=== PATIENT | male | born 1990 | race Caucasian/White ===

== ENCOUNTER 2020-04-11 17:19 | Inpatient (IN) | payer OTHER ==
[~2020-04-11] VITALS: Ht 188 cm; Wt 113.7 kg
[2020-04-11] MEDS ORDERED: ONDANSETRON HCL 4 MG/2 ML VIAL IVP PRN (18:00)
[2020-04-11] MEDS ORDERED: ACETAMINOPHEN 325 MG TABLET PO PRN ×2 (18:00→19:15)
[2020-04-11] MEDS ORDERED: 0.9% SODIUM CHLORIDE 10 ML SYRINGE IVP PRN (18:00)
[2020-04-11 18:23] LABS: BASOPHILS % (AUTO) 0.5 % (0.0-2.0); EOSINOPHILS % (AUTO) 0.7 % (1.0-6.0); HEMATOCRIT 49.6 % (41-53); HEMOGLOBIN 16.2 g/dL (13.5-17.5); LYMPHOCYTES # (AUTO) 2.7 K/uL (1.0-4.8); LYMPHOCYTES % (AUTO) 22.4 % (22.0-44.0); MEAN CORPUSCULAR HEMOGLOBIN 27.6 pg (26.0-34.0); MEAN CORPUSCULAR HGB CONC 32.7 G/dL (31.0-37.0); MEAN CORPUSCULAR VOLUME 84 fL (80-100); MONOCYTES # (AUTO) 0.7 K/uL (0.1-1.0); MONOCYTES % (AUTO) 5.9 % (2.0-9.0); NEUTROPHILS # (AUTO) 8.5 K/uL (1.8-7.7); NEUTROPHILS % (AUTO) 70.5 % (40.0-70.0); PLATELET COUNT (AUTO) 267 K/uL (150-450); RED BLOOD CELL COUNT(AUTO) 5.88 MIL/uL (4.50-5.90); RED CELL DISTRIBUTION WIDTH 13.4 % (11.5-14.5)
[2020-04-11 18:44] LABS: ANION GAP 7 mmol/L (8-16); CALCIUM, TOTAL 8.7 mg/dL (8.8-10.5); CARBON DIOXIDE 30 mmol/L (22-29); CHLORIDE 100 mmol/L (98-107); CREATININE 0.99 mg/dL (0.60-1.30); GLOMERULAR FILTR. RATE CALC > 60 mL/min (>60); GLUCOSE,RANDOM 80 mg/dL (70-110); POTASSIUM 3.8 mmol/L (3.5-5.1); SODIUM SERUM 137 mmol/L (136-145); UREA NITROGEN, BLOOD 14 mg/dL (7-18)
[2020-04-11 19:06] LABS: ALANINE AMINOTRANSFERASE 40 U/L (12-78); ALKALINE PHOSPHATASE 93 U/L (46-116); ASPARTATE AMINOTRANSFERASE 24 U/L (15-37); BILIRUBIN,TOTAL 0.9 mg/dL (0.1-1.0); C-REACTIVE PROTEIN QUANT 0.25 mg/dL (0.00-0.30); CREATINE KINASE, TOTAL ONLY 222 U/L (39-308); FERRITIN 105 ng/mL (26-388); TOTAL PROTEIN, SERUM 7.8 g/dL (6.4-8.2)
[2020-04-11] MEDS ORDERED: MAGNESIUM HYDROXIDE SUSPENSION 30 ML UDCUP PO PRN (19:15)
[2020-04-11 22:02] VITALS: BP 131/72
[2020-04-12] MEDS: HEPARIN SODIUM,PORCINE 5,000 UNITS/ML VIAL SQ SCH ×3 (01:03→15:07)
[2020-04-12 08:11] LABS: BASOPHILS % (AUTO) 0.2 % (0.0-2.0); EOSINOPHILS % (AUTO) 0.8 % (1.0-6.0); HEMOGLOBIN 16.7 g/dL (13.5-17.5); LYMPHOCYTES # (AUTO) 2.2 K/uL (1.0-4.8); LYMPHOCYTES % (AUTO) 28.3 % (22.0-44.0); MEAN CORPUSCULAR HEMOGLOBIN 28.7 pg (26.0-34.0); MEAN CORPUSCULAR HGB CONC 34.2 G/dL (31.0-37.0); MEAN CORPUSCULAR VOLUME 84 fL (80-100); MONOCYTES # (AUTO) 0.4 K/uL (0.1-1.0); MONOCYTES % (AUTO) 5.7 % (2.0-9.0); NEUTROPHILS # (AUTO) 5.1 K/uL (1.8-7.7); PLATELET COUNT (AUTO) 278 K/uL (150-450); RED BLOOD CELL COUNT(AUTO) 5.84 MIL/uL (4.50-5.90); RED CELL DISTRIBUTION WIDTH 13.7 % (11.5-14.5)
[2020-04-12 09:00] VITALS: BP 114/74
[2020-04-12 09:15] LABS: APPEARANCE,URINE CLEAR (CLEAR); GLUCOSE, URINE (UA) NEGATIVE (NEGATIVE); KETONES,URINE TRACE mg/dL (NEGATIVE); LEUKOCYTE ESTERASE ,URINE NEGATIVE (NEGATIVE); NITRATE,URINE NEGATIVE (NEGATIVE); OCCULT BLOOD,URINE NEGATIVE (NEGATIVE); PH,URINE 5.5 (5.0-8.0); PROTEIN,URINE NEGATIVE (NEGATIVE)
[2020-04-12 09:26] LABS: BILIRUBIN,URINE PRELIM. POSITIVE (NEGATIVE)
[2020-04-12 09:28] LABS: AMPHET/METH SCREEN,URINE POSITIVE (NEGATIVE); BARBITURATE SCREEN, URINE NEGATIVE (NEGATIVE); BENZODIAZEPINES SCREEN,URINE NEGATIVE (NEGATIVE); CANNABINOID SCREEN,URINE NEGATIVE (NEGATIVE); COCAINE SCREEN,URINE NEGATIVE (NEGATIVE); METHADONE SCREEN, URINE NEGATIVE (NEGATIVE); OPIATE SCREEN,URINE NEGATIVE (NEGATIVE); PHENCYCLIDINE SCREEN,URINE NEGATIVE (NEGATIVE)
[2020-04-12 09:59] LABS: BACTERIA,URINE None Seen /HPF (None Seen); RBC,URINE 0-2 /HPF (0-2); WBC,URINE 0-2 /HPF (0-5)
[2020-04-12 15:12] VITALS: BP 107/72
[2020-04-12 15:36] VITALS: BP 108/71
[2020-04-12 18:20] VITALS: BP 115/60
[2020-04-13] MEDS: HEPARIN SODIUM,PORCINE 5,000 UNITS/ML VIAL SQ SCH ×4 (00:23→23:02)
[2020-04-13 04:35] VITALS: BP_SYST 100; BP_SYST 124; BP_DIAS 62; BP_DIAS 72
[2020-04-13 09:07] VITALS: BP 119/65
[2020-04-13 15:57] VITALS: BP 136/77
[2020-04-13 23:17] VITALS: BP 132/80
[2020-04-14 06:35] VITALS: BP 137/77
[2020-04-14] MEDS: HEPARIN SODIUM,PORCINE 5,000 UNITS/ML VIAL SQ SCH ×3 (09:11→23:16)
[2020-04-14 09:18] VITALS: BP 113/63
[2020-04-14 11:42] VITALS: BP 160/98
[2020-04-14 16:23] VITALS: BP 126/76
[2020-04-14 21:52] VITALS: BP 117/57
[2020-04-15 05:32] VITALS: BP 122/79
[2020-04-15] MEDS: HEPARIN SODIUM,PORCINE 5,000 UNITS/ML VIAL SQ SCH ×2 (08:02→15:12)
[2020-04-15 08:39] VITALS: BP 120/82
[2020-04-15 16:49] VITALS: BP 103/83
[2020-04-16 00:43] VITALS: BP 119/74
[2020-04-16] MEDS: HEPARIN SODIUM,PORCINE 5,000 UNITS/ML VIAL SQ SCH ×4 (00:53→23:49)
[2020-04-16 06:20] VITALS: BP 110/60
[2020-04-16 09:10] VITALS: BP 124/81
[2020-04-16 16:34] VITALS: BP 130/86
[2020-04-17] VITALS: BP 107/61
[2020-04-17 10:00] VITALS: BP 134/80
[2020-04-17] MEDS: HEPARIN SODIUM,PORCINE 5,000 UNITS/ML VIAL SQ SCH ×2 (10:06→16:28)
[2020-04-17 16:42] VITALS: BP 130/73
[2020-04-17 20:00] VITALS: BP 123/61
[2020-04-18] MEDS: HEPARIN SODIUM,PORCINE 5,000 UNITS/ML VIAL SQ SCH ×4 (00:36→22:26)
[2020-04-18 05:00] VITALS: BP 116/66
[2020-04-18 08:00] VITALS: BP 111/44
[2020-04-18 15:20] VITALS: BP 118/65
[2020-04-18 22:23] VITALS: BP 111/62
[2020-04-19 06:34] VITALS: BP 134/73
[2020-04-19] MEDS: HEPARIN SODIUM,PORCINE 5,000 UNITS/ML VIAL SQ SCH ×3 (08:19→23:02)
[2020-04-19 08:59] VITALS: BP 113/64
[2020-04-19 15:57] VITALS: BP 118/67
[2020-04-19 20:27] VITALS: BP 116/85
[2020-04-20 04:50] VITALS: BP 102/53
[2020-04-20 07:40] VITALS: BP 107/67
[2020-04-20] MEDS: HEPARIN SODIUM,PORCINE 5,000 UNITS/ML VIAL SQ SCH ×3 (09:04→22:55)
[2020-04-20 15:10] VITALS: BP 131/76
[2020-04-20 23:06] VITALS: BP 112/78
[2020-04-21 04:00] VITALS: BP 103/59
[2020-04-21 07:57] VITALS: BP 121/67
[2020-04-21] MEDS: HEPARIN SODIUM,PORCINE 5,000 UNITS/ML VIAL SQ SCH ×2 (08:14→17:01)
[2020-04-21 15:54] VITALS: BP 116/68
[2020-04-21 20:27] VITALS: BP 129/71
[2020-04-22] MEDS: HEPARIN SODIUM,PORCINE 5,000 UNITS/ML VIAL SQ SCH ×4 (01:01→23:08)
[2020-04-22 08:17] VITALS: BP 127/73
[2020-04-22 15:41] VITALS: BP 141/73
[2020-04-22 23:09] VITALS: BP 126/78
[2020-04-23 05:32] VITALS: BP 119/67
[2020-04-23 08:19] LABS: BASOPHILS % (AUTO) 0.4 % (0.0-2.0); EOSINOPHILS % (AUTO) 2.3 % (1.0-6.0); HEMATOCRIT 47.9 % (41-53); HEMOGLOBIN 15.8 g/dL (13.5-17.5); LYMPHOCYTES # (AUTO) 3.3 K/uL (1.0-4.8); LYMPHOCYTES % (AUTO) 42.6 % (22.0-44.0); MEAN CORPUSCULAR HEMOGLOBIN 27.8 pg (26.0-34.0); MEAN CORPUSCULAR VOLUME 84 fL (80-100); MONOCYTES # (AUTO) 0.5 K/uL (0.1-1.0); MONOCYTES % (AUTO) 6.2 % (2.0-9.0); NEUTROPHILS # (AUTO) 3.8 K/uL (1.8-7.7); NEUTROPHILS % (AUTO) 48.5 % (40.0-70.0); PLATELET COUNT (AUTO) 263 K/uL (150-450); RED BLOOD CELL COUNT(AUTO) 5.68 MIL/uL (4.50-5.90); RED CELL DISTRIBUTION WIDTH 13.3 % (11.5-14.5)
[2020-04-23] MEDS: HEPARIN SODIUM,PORCINE 5,000 UNITS/ML VIAL SQ SCH ×3 (08:19→23:19)
[2020-04-23 08:27] VITALS: BP 115/73
[2020-04-23 08:29] LABS: ANION GAP 9 mmol/L (8-16); CALCIUM, TOTAL 8.9 mg/dL (8.8-10.5); CARBON DIOXIDE 26 mmol/L (22-29); CHLORIDE 101 mmol/L (98-107); CREATININE 0.91 mg/dL (0.60-1.30); GLOMERULAR FILTR. RATE CALC > 60 mL/min (>60); GLUCOSE,RANDOM 79 mg/dL (70-110); POTASSIUM 4.2 mmol/L (3.5-5.1); SODIUM SERUM 136 mmol/L (136-145); UREA NITROGEN, BLOOD 15 mg/dL (7-18)
[2020-04-23 15:27] VITALS: BP 128/86
[2020-04-23 19:35] VITALS: BP 133/80
[2020-04-24 05:17] VITALS: BP 118/64
[2020-04-24 06:57] LABS: BASOPHILS % (AUTO) 0.6 % (0.0-2.0); EOSINOPHILS % (AUTO) 2.3 % (1.0-6.0); HEMATOCRIT 46.4 % (41-53); HEMOGLOBIN 15.7 g/dL (13.5-17.5); LYMPHOCYTES # (AUTO) 3.4 K/uL (1.0-4.8); LYMPHOCYTES % (AUTO) 41.9 % (22.0-44.0); MEAN CORPUSCULAR HEMOGLOBIN 28.5 pg (26.0-34.0); MEAN CORPUSCULAR HGB CONC 33.9 G/dL (31.0-37.0); MEAN CORPUSCULAR VOLUME 84 fL (80-100); MONOCYTES # (AUTO) 0.5 K/uL (0.1-1.0); MONOCYTES % (AUTO) 6.4 % (2.0-9.0); NEUTROPHILS # (AUTO) 3.9 K/uL (1.8-7.7); NEUTROPHILS % (AUTO) 48.8 % (40.0-70.0); PLATELET COUNT (AUTO) 239 K/uL (150-450); RED BLOOD CELL COUNT(AUTO) 5.51 MIL/uL (4.50-5.90); RED CELL DISTRIBUTION WIDTH 13.6 % (11.5-14.5)
[2020-04-24 08:03] VITALS: BP 126/70
[2020-04-24] MEDS: HEPARIN SODIUM,PORCINE 5,000 UNITS/ML VIAL SQ SCH ×2 (08:27→16:44)
[2020-04-24 16:13] VITALS: BP 117/67
[2020-04-24 21:26] VITALS: BP 110/69
[2020-04-25] MEDS: HEPARIN SODIUM,PORCINE 5,000 UNITS/ML VIAL SQ SCH ×4 (00:15→23:41)
[2020-04-25 04:46] VITALS: BP 123/66
[2020-04-25 07:44] VITALS: BP 123/90
[2020-04-25 08:00] LABS: BASOPHILS % (AUTO) 0.6 % (0.0-2.0); EOSINOPHILS % (AUTO) 2.3 % (1.0-6.0); HEMOGLOBIN 15.9 g/dL (13.5-17.5); LYMPHOCYTES # (AUTO) 2.7 K/uL (1.0-4.8); LYMPHOCYTES % (AUTO) 36.1 % (22.0-44.0); MEAN CORPUSCULAR HEMOGLOBIN 27.9 pg (26.0-34.0); MEAN CORPUSCULAR HGB CONC 33.1 G/dL (31.0-37.0); MEAN CORPUSCULAR VOLUME 84 fL (80-100); MONOCYTES # (AUTO) 0.5 K/uL (0.1-1.0); MONOCYTES % (AUTO) 6.2 % (2.0-9.0); NEUTROPHILS # (AUTO) 4.1 K/uL (1.8-7.7); NEUTROPHILS % (AUTO) 54.8 % (40.0-70.0); PLATELET COUNT (AUTO) 250 K/uL (150-450); RED CELL DISTRIBUTION WIDTH 13.2 % (11.5-14.5)
[2020-04-25 15:48] VITALS: BP 124/79
[2020-04-25 19:31] VITALS: BP 150/74
[2020-04-26 03:31] VITALS: BP 102/58
[2020-04-26] MEDS: HEPARIN SODIUM,PORCINE 5,000 UNITS/ML VIAL SQ SCH ×2 (08:15→16:45)
[2020-04-26 08:22] VITALS: BP 107/57
[2020-04-26 15:58] VITALS: BP 120/66
[2020-04-26 21:17] VITALS: BP 118/75
[2020-04-27] MEDS: HEPARIN SODIUM,PORCINE 5,000 UNITS/ML VIAL SQ SCH ×3 (00:48→16:45)
[2020-04-27 07:30] VITALS: BP 112/56
[2020-04-27 15:25] VITALS: BP 123/71
[2020-04-27 20:00] VITALS: BP 119/68
[2020-04-28] VITALS: BP 127/73
[2020-04-28] MEDS: HEPARIN SODIUM,PORCINE 5,000 UNITS/ML VIAL SQ SCH ×4 (00:53→23:59)
[2020-04-28 08:58] VITALS: BP 119/75
[2020-04-28 16:43] VITALS: BP 124/75
[2020-04-28 20:30] VITALS: BP 136/77
[2020-04-29 05:15] VITALS: BP 106/62
[2020-04-29] MEDS: HEPARIN SODIUM,PORCINE 5,000 UNITS/ML VIAL SQ SCH ×2 (09:43→16:00)
[2020-04-29 12:43] VITALS: BP 112/64
[2020-04-29 20:40] VITALS: BP 129/83
[2020-04-30] MEDS: HEPARIN SODIUM,PORCINE 5,000 UNITS/ML VIAL SQ SCH ×4 (00:15→23:50)
[2020-04-30 00:24] VITALS: BP 124/75
[2020-04-30 08:27] VITALS: BP 140/69
[2020-04-30 15:08] VITALS: BP 123/71
[2020-04-30 19:44] VITALS: BP 122/74
[2020-04-30 23:43] VITALS: BP 128/79
[2020-05-01 04:31] VITALS: BP 115/68
[2020-05-01 07:57] VITALS: BP 104/51
[2020-05-01] MEDS: HEPARIN SODIUM,PORCINE 5,000 UNITS/ML VIAL SQ SCH ×3 (08:39→23:04)
[2020-05-01 20:02] VITALS: BP 122/78
[2020-05-02] MEDS: HEPARIN SODIUM,PORCINE 5,000 UNITS/ML VIAL SQ SCH ×2 (07:52→15:53)
[2020-05-02 08:43] VITALS: BP 113/40
[2020-05-02 15:50] VITALS: BP 114/52
[2020-05-02 20:20] VITALS: BP 129/68
[2020-05-03] VITALS: BP 100/61
[2020-05-03] MEDS: HEPARIN SODIUM,PORCINE 5,000 UNITS/ML VIAL SQ SCH ×3 (01:01→16:29)
[2020-05-03 04:40] VITALS: BP 111/67
[2020-05-03 08:22] VITALS: BP 104/53
[2020-05-03 15:10] VITALS: BP 120/71
[2020-05-03 20:20] VITALS: BP 130/73
[2020-05-04] MEDS: HEPARIN SODIUM,PORCINE 5,000 UNITS/ML VIAL SQ SCH ×4 (00:08→23:10)
[2020-05-04 05:02] VITALS: BP 106/57
[2020-05-04 08:16] VITALS: BP 109/63
[2020-05-04 16:30] VITALS: BP 120/74
[2020-05-04 20:14] VITALS: BP 129/78
[2020-05-05 05:29] VITALS: BP 107/60
[2020-05-05 08:30] VITALS: BP 108/73
[2020-05-05] MEDS: HEPARIN SODIUM,PORCINE 5,000 UNITS/ML VIAL SQ SCH ×3 (08:33→23:31)
[2020-05-05 16:17] VITALS: BP 124/75
[2020-05-05 19:39] VITALS: BP 120/71
[2020-05-06 04:22] VITALS: BP 105/63
[2020-05-06] MEDS: HEPARIN SODIUM,PORCINE 5,000 UNITS/ML VIAL SQ SCH ×3 (08:13→23:36)
[2020-05-06 09:02] VITALS: BP 110/56
[2020-05-06 16:28] VITALS: BP 109/70
[2020-05-06 20:50] VITALS: BP 128/82
[2020-05-07 04:00] VITALS: BP 121/73
[2020-05-07 08:06] VITALS: BP 116/51
[2020-05-07] MEDS: HEPARIN SODIUM,PORCINE 5,000 UNITS/ML VIAL SQ SCH (09:07)
== END 2020-05-07 14:43 | DRG 178 ==
LOC: EMS 17:24 → 5S 19:03 → 6N 20:40
PROVIDERS: ADMIT Internal Medicine; ATTEND Internal Medicine
DX: U07.1 COVID-19 (principal); R65.10 Systemic inflammatory response syndrome (SIRS) of non-infectious origin without acute organ dysfunction; F15.90 Other stimulant use, unspecified, uncomplicated; D72.829 Elevated white blood cell count, unspecified; Z78.9 Other specified health status
CPT/HCPCS: 82728; 83735; 85379; 86140; 93005; J1644